=== PATIENT | male | born 1990 | race Caucasian/White ===

== ENCOUNTER 2017-11-06 21:59 | Emergency (ER) | payer BC ==
[~2017-11-06] VITALS: Ht 182.9 cm; Wt 117.9 kg
[~2017-11-06 21:59] MED LIST: CYCL5TAB PO; OXYC-328 PO
[2017-11-06 22:11] VITALS: BP 130/74
[2017-11-06] MEDS ORDERED: ONDANSETRON ODT 4 MG TAB.RAPDIS PO ONE ×2 (22:30→22:45)
--- NOTE | 2017-11-06 22:32 | ED.ADGEN ---
Past History Past Medical History: No Pertinent History Past Surgical History: Other Smoking: Non-smoker Alcohol Use: Occasionally Drug Use: None Adult General Chief Complaint Chief Complaint Head injury [facility] HPI Patient is a 27-year-old male who presents with head injury. SHee was playing recreational football when he reports lmneln-la-hzikru contact, feeling dazed at the time of impact with persistent headache nausea and dizziness since impact 1 hour prior to ED arrival. Denies loss of consciousness. Patient took himself out of play and remain on the sidelines for the remaining gain. Denies seizure, vomiting, neck pain. Reports dizziness upon standing. Headache is described as moderate and located over the left posterior parietal region. No occasions or therapies are to ED arrival. No other acute symptoms or complaints. Does not take any medications on a daily basis. Patient works as a penal officer. [] Review of Systems Review of Systems ROS as per HPI. All other systems were reviewed and found to be within normal limits, except as documented in this note. Current Medications Current Medications Current Medications Medications (Trade) Dose Ordered Sig/Zuleika Start Time Stop Time Status Last Admin Dose Admin Acetaminophen (Tylenol) 1,000 mg 1X ONCE 11/06/17 22:45 11/06/17 22:46 DC 11/06/17 22:47 1,000 MG Ondansetron HCl (Zofran Odt) 8 mg 1X ONCE 11/06/17 22:45 11/06/17 22:46 DC Allergies Allergies Allergies Coded Allergies Type Severity Reaction Last Updated Verified aspirin Allergy Intermediate rash 09/09/13 Yes Physical Exam Physical Exam Constitutional: Well developed, well nourished, no acute distress, non-toxic appearance. [] HENT: Normocephalic, atraumatic, bilateral external ears normal, oropharynx moist, no oral exudates, nose normal. [] Eyes: PERRLA, EOMI. no nystagmus.[] Neck: Normal range of motion, supple. [] Cardiovascular:Heart rate regular rhythm, no murmur [] Lungs & Thorax: Bilateral breath sounds clear to auscultation [] Neurologic: Alert and oriented X 3, CN2-12, normal motor function, normal sensory function, no focal deficits noted. Normal [id number]-[id number], heel to rios. [] Psychologic: Affect normal, judgement normal, mood normal. [] Current Patient Data Vital Signs Vital Signs Date Time Temp Pulse Resp B/P (MAP) Pulse Ox O2 Delivery O2 Flow Rate FiO2 11/06/17 22:11 98.2 96 18 98 Room Air EKG EKG [] Radiology/Procedures Radiology/Procedures [] Course & Med Decision Making Course & Med Decision Making Pertinent Labs and Imaging studies reviewed. (See chart for details) [No loss of consciousness, vomiting, focal neurologic deficits or worsening CULP. Symptoms consistent with concussion syndrome. Zofran and Tylenol given. Courtesy work note provided. PCP follow-up recommended. Return cautions reviewed. Patient verbalizes understanding agreement discharge instructions prior to departure.] Final Impression Final Impression [1. Concussion syndrome] Problems: Dragon Disclaimer Dragon Disclaimer This electronic medical record was generated, in whole or in part, using a voice recognition dictation system. JOSSY ULRICH DO November 06, 2017 22:32
[2017-11-06] MEDS ORDERED: ACETAMINOPHEN 500 MG TABLET PO ONE (22:45)
== END 2017-11-06 23:38 | disposition home or self-care (01) ==
LOC: ER 21:59
DX: S06.0X0A Concussion without loss of consciousness, initial encounter (principal); Z88.6 Allergy status to analgesic agent; W22.8XXA Striking against or struck by other objects, initial encounter; Y93.89 Activity, other specified; Y99.8 Other external cause status; Y92.89 Other specified places as the place of occurrence of the external cause
CPT/HCPCS: 99283; Q0162

== ENCOUNTER 2018-06-06 12:49 | Emergency (ER) | payer OTHER, BC ==
[~2018-06-06] VITALS: Ht 177.8 cm; Wt 136.1 kg
[~2018-06-06 12:49] MED LIST changes: -OXYC-328 PO; +OXYC1TAB22 PO
[2018-06-06 13:11] VITALS: BP 132/77
[2018-06-06] MEDS ORDERED: IBUPROFEN 400 MG TABLET. PO ONE (13:15)
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
[2018-06-06] MEDS ORDERED: NAPR-683 PO (13:45)
--- NOTE | 2018-06-06 14:02 | RAD ---
Left shoulder, 3 views, 06/06/2018: HISTORY: Shoulder injury No fracture or dislocation is identified. There are small sclerotic foci in the humeral head, probably representing bone islands. IMPRESSION: No acute left shoulder abnormality is detected. Electronically signed by: Heath Marc MD (06/06/2018 1:58 PM) [facility]
== END 2018-06-06 13:53 | disposition home or self-care (01) ==
LOC: ER 12:49
DX: S43.402A Unspecified sprain of left shoulder joint, initial encounter (principal); Z88.6 Allergy status to analgesic agent; Y04.0XXA Assault by unarmed brawl or fight, initial encounter; Y93.89 Activity, other specified; Y92.89 Other specified places as the place of occurrence of the external cause; Y99.0 Civilian activity done for income or pay
CPT/HCPCS: 73030; 99283

== ENCOUNTER 2019-08-21 13:10 | Emergency (ER) | payer BC, OTHER ==
[~2019-08-21] VITALS: Ht 177.8 cm; Wt 140.9 kg
[~2019-08-21 13:10] MED LIST changes: +NAPR-683 PO
[2019-08-21] MEDS ORDERED: ONDANSETRON ODT 4 MG TAB.RAPDIS ONE (13:20)
[2019-08-21] MEDS ORDERED: ONDANSETRON ODT 4 MG TAB.RAPDIS PO ONE (13:45)
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
[2019-08-21 15:07] VITALS: BP 132/87
== END 2019-08-21 15:06 | disposition home or self-care (01) ==
LOC: ER 13:10
DX: S00.83XA Contusion of other part of head, initial encounter (principal); M54.2 Cervicalgia; Z88.6 Allergy status to analgesic agent; Y04.2XXA Assault by strike against or bumped into by another person, initial encounter; Y93.89 Activity, other specified; Y92.89 Other specified places as the place of occurrence of the external cause; Y99.8 Other external cause status
CPT/HCPCS: 70450; 70486; 72125; 99285; Q0162